=== PATIENT | female | born 1995 | race Caucasian/White ===

== ENCOUNTER 2017-04-07 10:23 | Emergency (ER) | payer OTHER, SELFPAY ==
[~2017-04-07 10:23] MED LIST: ISOVUE-370 76%-LOCM 1 ML ONE
[2017-04-07 11:31] LABS: Pregnancy Test - Urine (BHCG) Negative (Negative); Pregu Control Background? CLEAR/WHITE (CLR/WHITE); Pregu Control Bar Appear? YES (CONTROL BAR); Specific Gravity 1.022 (1.002-1.036)
[2017-04-07 12:14] LABS: #Eosinphils 0.1 thou/uL (0.0-0.7); #Lymphocytes 1.5 thou/uL (1.20-3.40); #Monocytes 0.4 thou/uL (0.11-0.59); #Neutrophils 2.4 thou/uL (1.40-6.50); %Eosinophils 3.1 % (0.0-10.0); %Lymphocytes 33.7 % (21.0-51.0); %Monocytes 8.6 % (0.0-10.0); %Neutrophils 53.5 % (42.0-75.0); Hemoglobin 13.5 g/dL (12.0-16.0); Mean Corpuscular Hemoglobin 31.2 pg (27.0-31.0); Mean Corpuscular Volume 94.7 fl (81.0-99.0); Mean Platelet Volume 7.2 fL (7.4-10.4); Platelet Count 217 thou/uL (130-400); RBC Distribution Width 11.7 % (11.5-14.5); Red Blood Cell (RBC) Count 4.34 mill/uL (4.20-5.40); White Blood Cell (WBC) Count 4.6 thou/uL (4.8-10.8)
[2017-04-07 12:28] LABS: Anion Gap 12 mmol/L (10-20); BUN (Urea Nitrogen) 12 mg/dL (7.0-18.7); Calc. Creatinine Clearance 0 mL/min (70-130); Calcium 9.7 mg/dL (7.8-10.44); Carbon Dioxide 25 mmol/L (22-29); Chloride 105 mmol/L (98-107); Estimated GFR-MDRD 73; Glucose 71 mg/dL (70-105); Potassium 4.2 mmol/L (3.5-5.1); Sodium 138 mmol/L (136-145)
--- NOTE | 2017-04-07 14:01 | CT ---
CT ABDOMEN AND PELVIS WITH IV CONTRAST: Date: 04/07/17 HISTORY: Right-sided groin palpable nodule. FINDINGS: The lung bases are clear. The liver, spleen, pancreas, adrenal glands, and kidneys are normal. No herbert cified gallstones are seen. No free air or lymphadenopathy seen in the abdomen or pelvis. There is a small amount of free fluid in the pelvis. Uterus and ovaries are present. No acute osseous abnormalit ies are identified. There is a 7-8 mm lymph node in the region of the right groin, likely corresponding to the palpable a bnormality. Similar nonenhanced lymph nodes are seen on the contralateral side. IMPRESSION: Palpable nodule in right groin is likely a lymph node. POS: AMIEH
== END 2017-04-07 14:34 | disposition home or self-care (01) ==
LOC: ERS 10:23
DX: R59.0 Localized enlarged lymph nodes (principal)
CPT/HCPCS: 36415; 74177; 80048; 81025; 85025